=== PATIENT | male | born 1955 | race American Indian/Alaskan Native ===

== ENCOUNTER 2017-07-18 06:55 | Day surgery (SDC) | payer BC ==
[2017-07-10 08:45] VITALS: BMI 34.8
[2017-07-18] MEDS ORDERED: Simethicone 40 mg/0.6 ml Liquid (30 ml) ONE (07:16)
[2017-07-18] MEDS ORDERED: Propofol 10 mg/ml Inj (20 ML) ONE (07:58)
[2017-07-18] MEDS ORDERED: Sodium Chloride 0.9% 1,000 ML IV SCH (08:45)
[2017-07-18 09:36] VITALS: RESP 18; O2SAT 98
[2017-07-18 09:39] VITALS: BP 122/80; PULSE 82; TEMP 98
== END 2017-07-18 10:23 | disposition home or self-care (01) ==
LOC: ENDO 06:55
PROVIDERS: ATTEND Specialist
DX: K21.0 Gastro-esophageal reflux disease with esophagitis (principal); K29.50 Unspecified chronic gastritis without bleeding; B96.81 Helicobacter pylori [H. pylori] as the cause of diseases classified elsewhere
CPT/HCPCS: 43239; 88305; 88312; 88342; J2001; J2704; J7030; J7040

== ENCOUNTER 2018-02-05 06:06 | Day surgery (SDC) | payer BC ==
[2018-02-03 14:12] VITALS: BMI 33.0
[2018-02-05] MEDS ORDERED: Propofol 10 mg/ml Inj (20 ML) ONE (08:42)
[2018-02-05] MEDS ORDERED: Midazolam 2 MG/2 ML VIAL ONE (09:09)
[2018-02-05] MEDS ORDERED: Sodium Chloride 0.9% 1,000 ML IV SCH (09:30)
[2018-02-05 10:35] VITALS: TEMP 97.6
[2018-02-05 10:47] VITALS: BP 112/69; PULSE 79; RESP 16; O2SAT 98
== END 2018-02-05 11:04 | disposition home or self-care (01) ==
LOC: ENDO 06:06
PROVIDERS: ATTEND Specialist
DX: Z12.11 Encounter for screening for malignant neoplasm of colon (principal); K57.30 Diverticulosis of large intestine without perforation or abscess without bleeding; K64.8 Other hemorrhoids
CPT/HCPCS: 45378; 82948; J2001; J2250; J2405; J2704; J7030; J7040